=== PATIENT | male | born 1960 | race Caucasian/White ===

== ENCOUNTER → 2022-03-22 08:14 | Outpatient (CLI) | payer OTHER, SELFPAY ==
--- NOTE | ~2022-03-22 | XR_ITS ---
XR pelvis min 3V, XR hip BI wo pelvis 03/22/2022 08:39 Indication: Recent injury. Pelvic pain. Procedure: AP pelvis and 3 views each hip Comparison: No prior studies for comparison. Findings: There is a segmented displaced fracture of the right inferior pubic ramus. Sacral foramen a re symmetric. Mild degenerative changes of the hips. No other fracture identified. No significant sof t tissue abnormality. No foreign bodies. Impression: 1: Segment and displaced fracture right inferior pubic ramus. Reviewed, dictated and finalized at location B. Impression: 1: Segment and displaced fracture right inferior pubic ramus. Impression: 1: Segment and displaced fracture right inferior pubic ramus.
== END ==
PROVIDERS: PCP Internal Medicine; Visit Provider Internal Medicine
DX: S32.591A Other specified fracture of right pubis, initial encounter for closed fracture (principal); Z87.828 Personal history of other (healed) physical injury and trauma
CPT/HCPCS: 72190; 73521

== ENCOUNTER → 2022-08-13 09:17 | Outpatient (CLI) | payer OTHER, SELFPAY ==
--- NOTE | ~2022-08-13 | XR_ITS ---
AP view of the pelvis Clinical history: Pelvic fracture follow-up COMPARISON: 03/22/2022 Findings: There is a healing fracture at the junction of the right inferior pubic ramus and right isc hial tuberosity with fracture lines slightly less well-defined. Additional fracture of the right infe rior pubic or is closely to the symphysis is again present, with large bony gap, and no significant c allus formation or bony bridging. Bilateral hip and SI joint spaces are preserved. Soft tissues are u nremarkable. Impression: Mild interval healing of fracture near the junction of the right inferior pubic ramus and right ischi al tuberosity, as detailed above. Additional fracture of the right inferior pubic ramus closer to the symphysis, with no callus formati on or bony bridging, suggestive of developing nonunion. Reviewed, dictated and finalized at [facility]. DREN'S ZOO CARETAKER Impression: Mild interval healing of fracture near the junction of the right inferior pubic ramus and right ischial tuberosity, as detailed above. Additional fracture of the right inferior pubic ramus closer to the symphysis, with no callus formation or bony bridging, suggestive of developing nonunion.
--- NOTE | ~2022-08-13 | XR_ITS ---
Right Shoulder Technique: AP and axillary views were obtained. Clinical History: Pain Findings: No fracture or dislocation is seen. Osseous alignment is anatomic. The glenohumeral and acr omioclavicular joint spaces are preserved. Soft tissues are unremarkable. Impression: Unremarkable right shoulder radiographs. Reviewed, dictated and finalized at [facility]. SPECIALIST Impression: Unremarkable right shoulder radiographs.
== END ==
PROVIDERS: PCP Internal Medicine; Visit Provider Nurse Practitioner
DX: M25.511 Pain in right shoulder (principal); R10.2 Pelvic and perineal pain; S32.591A Other specified fracture of right pubis, initial encounter for closed fracture
CPT/HCPCS: 72170; 73030

== ENCOUNTER → 2022-08-25 12:38 | Outpatient (CLI) | payer OTHER, SELFPAY ==
--- NOTE | ~2022-08-25 | MR_ITS ---
MRI of the lumbar spine Clinical History: Compression fracture, disc herniation Technique: Axial T2-weighted images, and sagittal T1-weighted, T2-weighted, and T2 fat-sat images wer e acquired. Findings: There is a minimal chronic wedging deformity of L1, with no marrow edema present. No other fracture or subluxation seen. Intraosseous hemangioma noted at the L3 vertebral body. No suspicious b one marrow signal abnormality seen. At L1-L2, L2-L3, L3-L4, there are mild facet joint degenerative changes, but no significant disc bulg e or herniation. No spinal canal stenosis or neural foraminal narrowing at these levels. At L4-L5, there is minimal disc bulge and mild facet arthropathy. No selina spinal canal stenosis. Pos sible minimal left neural foraminal narrowing. Right neural foramen preserved. At L5-S1, there is no significant disc bulge or herniation. There is mild facet arthropathy. No spina l canal stenosis or neural foraminal narrowing. Paravertebral soft tissues are unremarkable. Impression: Mild chronic compression deformity of L1, as detailed above. Minimal degenerative spondylitic changes. Possible minimal left neural foraminal narrowing at L4-L5. Reviewed, dictated and finalized at [facility]. ECTOR TUBES Impression: Mild chronic compression deformity of L1, as detailed above. Minimal degenerative spondylitic changes. Possible minimal left neural foramina l narrowing at L4-L5.
--- NOTE | ~2022-08-25 | MR_ITS ---
EXAMINATION: MR shoulder RT wo con DATE: 08/25/2022 14:07 INDICATION: Right shoulder pain TECHNIQUE: Magnetic resonance imaging (MRI) of the right shoulder was performed without intravenous c ontrast. Sequences included axial PD-weighted FS FSE, coronal oblique PD-weighted FS FSE, coronal obl ique T2-weighted FS FSE, sagittal PD-weighted FS FSE, and sagittal T1-weighted SE. COMPARISON: Right shoulder radiographs dated 08/13/2022 and MRI dated 10/01/2009 FINDINGS: Coracoacromial arch: The acromion undersurface is flat in morphology (type I). The coracoacromial ligament is normal. Mild acromioclavicular osteoarthritis with small inferiorly directed osteophyte at the lateral head of th e clavicle which remains separate from the underlying supraspinatus by thin intervening fat plane. Rotator cuff: Mild infraspinatus and minimal supraspinatus tendinopathy without tear. The teres minor and subscapul eliseo tendons are normal. Normal rotator cuff muscle bulk and signal. Biceps tendon, glenoid labrum and glenohumeral cartilage: Long head of the biceps tendon is normal. There is labral tear which appears to begin at the 12:30 po sition and extending posteriorly and inferiorly to at least the 6:00 position. There is a tiny para l abral cyst measuring 3 x 4 x 4 mm arising from the tear at the periphery of the 9:00 position. Mild g lenohumeral osteoarthritis with partial thickness cartilage loss with smooth chondral surface and wit hout degenerative subchondral changes along the inferomedial aspect of the humeral head and at the ce ntral to cephalad aspect of the glenoid. Tiny marginal osteophytes along the inferior glenoid. Fluid: Physiologic amount of fluid in the glenohumeral joint and biceps tendon sheath. No loose osteochondr al bodies. Minimal increased fluid in the subacromial/subdeltoid bursa consistent with mild bursitis. Bones: Bone alignment is normal. No fracture or pathologic marrow replacing process. There are couple bone i slands at the glenoid. IMPRESSION: 1. Tear involving the posterior half of the glenoid labrum with tiny para labral cyst at the 9:00 pos ition. 2. Mild infraspinatus and minimal supraspinatus tendinopathy without tear. 3. Mild glenohumeral and acromioclavicular osteoarthritis. 4. Mild subacromial/subdeltoid bursitis. Reviewed, dictated and finalized at location A. WARE TRAINER IMPRESSION: 1. Tear involving the posterior half of the glenoid labrum with tiny para judy l cyst at the 9:00 position. 2. Mild infraspinatus and minimal supraspinatus tendinopathy without tear. 3. Mild glenohumeral and acromioclavicular osteoarthritis. 4. Mild subacromial/subdeltoid bursitis.
== END ==
PROVIDERS: PCP Internal Medicine; Visit Provider Nurse Practitioner
DX: S32.010A Wedge compression fracture of first lumbar vertebra, initial encounter for closed fracture (principal); M25.511 Pain in right shoulder; S43.431A Superior glenoid labrum lesion of right shoulder, initial encounter; M75.81 Other shoulder lesions, right shoulder; M19.011 Primary osteoarthritis, right shoulder; M75.51 Bursitis of right shoulder
CPT/HCPCS: 72148; 73221

== ENCOUNTER → 2023-01-27 08:27 | Outpatient (CLI) | payer OTHER, SELFPAY ==
--- NOTE | ~2023-01-27 | XR_ITS ---
Left wrist Technique: PA, oblique, lateral, and ulnar deviation views were obtained. Clinical History: Pain Findings: No acute fracture or dislocation is seen. Osseous alignment is anatomic. There is mild dege nerative change of the first metacarpophalangeal joint. Soft tissues are unremarkable. Impression: No fracture or dislocation. Mild degenerative change of the first metacarpophalangeal joint. Reviewed, dictated and finalized at location . Impression: No fracture or dislocation. Mild degenerative change of the first metacarpophalangeal joint.
== END ==
PROVIDERS: PCP Internal Medicine; Visit Provider Internal Medicine
DX: S69.92XA Unspecified injury of left wrist, hand and finger(s), initial encounter (principal)
CPT/HCPCS: 73110

== ENCOUNTER 2023-12-12 15:42 | Outpatient (CLI) | payer OTHER, SELFPAY ==
--- NOTE | ~2023-12-12 | XR_ITS ---
EXAMINATION: XR thoracic spine 3V DATE: 12/12/2023 15:59 INDICATION: Thoracic spine pain. TECHNIQUE: 3 views of thoracic spine were obtained. COMPARISON: Lumbar spine MRI 08/25/2022 FINDINGS: Bone alignment is normal. There is mild chronic anterior wedging of T12 and L1 vertebral jayla dies. Intervertebral disc heights are normal. There are bridging endplate osteophytes at multiple lev els in the spine, consistent with diffuse idiopathic skeletal hyperostosis (DISH). There is plate and screw fixation of left clavicle. IMPRESSION: 1. DISH. Reviewed, dictated and finalized at location A. IMPRESSION: 1. DISH.
== END 2023-12-12 15:43 ==
LOC: GOSHIMG 15:42
PROVIDERS: PCP Internal Medicine; Visit Provider Internal Medicine
DX: M48.14 Ankylosing hyperostosis [Forestier], thoracic region (principal)
CPT/HCPCS: 72072

== ENCOUNTER 2025-01-15 07:14 | Outpatient (CLI) | payer OTHER, SELFPAY ==
--- NOTE | ~2025-01-15 | CT_ITS ---
Clinical Indication: Solitary pulmonary nodule CT Scan of the Chest with Contrast: Technique: Contiguous sections were acquired throughout the chest after intravenous administration of 75 cc of Omnipaque 350. Dose reduction technique was used on this scan by utilizing automated exposu re control and iterative reconstruction technique. The dose-length product (DLP) was 285.19 mGy-cm. Findings: There is no evidence of any significant mediastinal, hilar or axillary lymphadenopathy. There is no f illing defect in the pulmonary arterial tree to suggest pulmonary embolus. There is no evidence of ao rtic dissection or aneurysm. There is no evidence of pleural or pericardial effusion. 4 mm right upper lobe nodule present (axial image 57). 11 mm right lower lobe nodule present centrall y (axial image 77). Images through the upper abdomen reveal no abnormalities. Impression: 11 mm right lower lobe pulmonary nodule, indeterminate. Consider short-term follow-up CT in [address] or even attempted tissue sampling. Comparison with any prior exams would be useful to a ssess for chronicity of this nodule. Additional 4 mm right upper lobe pulmonary nodule, indeterminate, though likely benign. Reviewed, dictated and finalized at [facility]. Impression: 11 mm right lower lobe pulmonary nodule, indeterminate. Consider short-term fol low-up CT in [address] or even attempted tissue sampling. Comparis on with any prior exams would be useful to assess for chronicity of this nodule . Additional 4 mm right upper lobe pulmonary nodule, indeterminate, though likely benign.
--- OUTSIDE RECORDS SUMMARY | 2025-01-15 07:20 | XMS_ITS | Continuity of Care Document ---
Author Organization [facility] Address [address] [place] [address] Phone Care Team Providers Care Activity Therapist Name Role Phone [facility] Unavailable Unavail able Silvino Zhang Unavailable Unavailable Procedures Procedure Date Vision [employer] Fr[employer] Purchases [employer] SV Plastic Sphcyl [place] +/-4d, .12-2d De Office/outpatient Visit, [facility] W/ Report Eye Photography [facility] Refraction Office/outpatient Visit, [facility] Refraction [facility] Advance Directives Directive Yes / No Effective Date File Name No Information Encounters Encounter Description Practice Location Reason(s) For Visit Diagnoses Date Provider Providers Copied on Encounter [facility], [address], [place], [place], [id number], [place] tel:[phone] [facility] No Information Optical Shop [facility] . [address], [address], [place], [place], [address], [place]. tel:[phone] Referring Provider: Tony Sweeney OD P, [address] [facility], [place], [address] . tel:[phone] sulting Provider: Silvino gonsalves, [address] [facility], [place], [address]. tel:[phone] [facility], [address], [place], [place], [id number], [place] tel:[phone] [address] [facility] [place] No Information Optical [facility] . [address], [address], [place], [place], [address], [place]. tel:[phone] Referring Provider: Tony Sweeney OD P, [address] [facility], [place], [address] . tel:[phone] [facility] Provider: Silvino gonsalves, [address] [facility], [place], [address]. tel:[phone] Office/outpat ient Visit, [facility], [address] [place] [address] [address], [place], [place], [address], [place] tel:[phone] [facility] [place] No Information Zahra OD Tony. [address] [facility], [place], [place], [id number], [place]. tel:[phone] Referring Provider: Tony Sweeney OD P, [address] [facility], [place], [address] . tel:[phone] Office/outpat ient Visit, [facility], [address] [place] [address] [address], [place], [place], [address], [place] tel:[phone] [address] [place] No Information Ibetheny OD Tony. [address] [facility], [place], [place], [address], [place]. tel:[phone] Referring Provider: Tony Sweeney OD P, [address] [facility], [place], [address] . tel:[phone] Family History Family Member Type Diagnosis Age At Onset No Information Payers Payer name Insurance type Covered constitution party ID Authoriza tion(s) No Information Social History Type Description Quantity Date Captured Comments Sex Male Smoking Status No Information Chief Complaint And Reason For Visit No Information Reason For Referral Reason For Referral No Information History Of Present Illness Encounter Date Complaint History Of Prese nt Illness No Information Functional Status Date Functional Assessmen t No Information Instructions Date Instruction Additional Infor mation No Information Assessments Type Assessment Date No Information Patient Care Teams Name Effective Dates (start - stop) Status Members No Information
--- OUTSIDE RECORDS SUMMARY | 2025-01-15 07:20 | XMS_ITS | Referral Summary ---
Author Organization [facility] Address [address] [place] [address] Care Team Providers Care District Associate Judge Name Role Phone Jeramy Chiang DO Primary Care Provider [phone] Allergies No known active allergies Medications ibuprofen (ADVIL,MOTRIN) 800 mg tablet Take 1 tablet (800 mg total) by mouth every 6 (six) hours as needed for pain Active omega-3 fatty acids/fish oil (FISH OIL OMEGA 3-6-9 ORAL) Take 1,000 mg by mouth Active aspirin 81 mg chewable tablet CHEW AND SWALLOW ONE TABLET BY MOUTH ONCE DAILY 01/01/2023 Active atorvastatin (LIPITOR) 40 mg tablet Take 1 tablet (40 mg total) by mouth daily 03/14/2023 Active testosterone (ANDROGEL) 1 % (25 mg/2.5gram) gel in packet Place 50 mg on the skin daily Active prasterone, dhea, 25 mg capsule Take by mouth 3 (three) times a week Active omeprazole (PriLOSEC) 40 mg capsuleIndicati ons:Treatment of Non-Bleeding Gastric Disorder Take 1 capsule (40 mg total) by mouth 2 (two) times a day 60 capsule 1 05/16/2023 Active Active Problems Problem Noted Date Diagnosed Date Esophagitis 05/25/2023 Colon cancer screening 05/25/2023 Chronic right-sided thoracic back pain 3 Wedge compression fracture o f first lumbar vertebra, initial encounter for closed fracture 03/16/2023 Social History Tobacco Use Types Packs/Day Years Used Date Smoking Tobacco: Never Smokeless Tobacco: Never Tobacco Cessation:Counseling Given: Not Answered AUDIT-C Answer Date Recorded Q1: How often do you have a drink containing alc ohol? Monthly or less 07/19/2023 Q2: How many drinks containi ng alcohol do you have on a typical day when you are drinking? 1 or 2 07/19/2023 Q3: How often do you have si x or more drinks on one occasion? Never 07/19/2023 Hunger Vital Sign Answer Date Recorded Within the past 12 months, y ou worried that your food would run out before you got the money to buy more. Never true 03/16/20 23 Within the past 12 months, t he food you bought just didn't last and you didn't have money to get more. Never true 03/16/2023 Personal Safety Answer Date Recorded Have you ever been in or are you currently in a harmful physical or emotional relationship or is someone making you feel afraid or unsafe? 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 Gender Identity Not on file Sexual Orientation Not on file Last Filed Vital Signs Vital Sign Reading Time Taken Comments Blood Pressure 125/70 07/19/2023 9:05 AM DIVISION LEADER Pulse 57 07/19/2023 9:05 AM DIVISION LEADER Temperature 36.8 C (98.2 F) 07/19/2023 8:35 AM DIVISION LEADER Respiratory Rate 17 07/19/2023 9:05 AM DIVISION LEADER Oxygen Saturation 93% 07/19/2023 9:05 AM DIVISION LEADER Inhaled Oxygen Concentration - - Weight 83.9 kg (185 lb) 07/19/2023 7:27 AM DIVISION LEADER Height 177.8 cm (5' 10) 07/19/2023 7:27 AM DIVISION LEADER Body Mass Index 26.54 07/19/2023 7:27 AM DIVISION LEADER Plan of Treatment Not on file Goals Goal Patient Goal Type Associated Problems Recent Progress Patient-Stated? Author CCM Chronic Pain Care Plan Chronic Care Management Keisha Benjamin, RN Note: Problem: Chronic Pain Goals: 1. Minimize further functional decline 2. Maximize quality of life 3. Control pain Strategies: - Activity/exercise program recommendation - Conservative stepwise pain medicine strategy with multi-disciplinary approach - Recommend healthy lifestyle strategies and compensatory methods as needed Procedures Procedure Name Priority Date/Time Associated Diagnosis Comments COLONOSCOPY 07/19/2023 8:14 AM DIVISION LEADER from Last 3 Months or Most Recently Relevant to Health Maintenance Results * COLONOSCOPY (07/19/2023 8:14 AM DIVISION LEADER) Anatomical Region Laterality Modality Other Narrative Procedure Note Mina Mendez MD - 07/19/2023 8:14 AM [facility] Patient Name: Hitesh Escobedo Procedure Date: 07/19/2023 8:14 AM Date of : 1960 Admit Type: Outpatient Age: 62 Gender: Male Attending MD: Mina Mendez M.D. Room: [facility] 9 Note Status: Finalized Procedure: Colonoscopy Indications: Screening for colorectal malignant neoplasm Referring MD: Jeramy Chiang D.O. Providers: Mina Mendez M.D. Comorbidities See the other procedure note for documentation of comorbidities Medicines: Monitored Anesthesia Care Complications: No immediate complications. Estimated Blood Loss: Estimated blood loss was minimal. Procedure: Pre-Anesthesia Assessment: - Prior to the procedure, a History and Physicalwas performed, and patient medications, allergies and sensitivities were reviewed. The patient'stolerance of previous anesthesia was reviewed. - Immediately prior to administration ofmedications, the patient was re-assessed for adequacy to receive sedatives. - The risks and benefits of the procedure and the sedation options and risks were discussed with the patient. All questions were answered and informed consent was obtained. The benefits, risks and alternatives of theprocedure and sedation were discussed and informed consentwas obtained. All questions were answered. Please referto the signed informed consent document in the medical record. The scope was passed under direct vision.The [id number] endoscope was introduced through the anus and advanced to the terminal ileum. The colonoscopy was performed without difficulty. The patient tolerated the procedure well. The qualityof the bowel preparation was evaluated using the BBPS ([place] Bowel Preparation Scale) with scores of:Right Colon = 2 (minor amount of residual staining, small fragments of stool and/or opaque liquid, but mucosa seen well), Transverse Colon = 3 (entire mucosaseen well with no residual staining, small fragments of stool or opaque liquid) and Left Colon = 2 (minor amount of residual staining, small fragments ofstool and/or opaque liquid, but mucosa seen well). Thetotal BBPS score equals 7. The bowel preparation used was GoLYTELY via split dose instruction. The quality of the bowel preparation was adequate. Findings: The perianal and digital rectal examinations were normal. The terminal ileum appeared normal. A 4 mm polyp was found in the cecum. The polyp was sessile. The polyp was removed with a cold snare. Resection and retrieval werecomplete. A 4 mm polyp was found in the transverse colon. The polyp wassessile. The polyp was removed with a cold snare. Resection and retrieval were complete. A 3 mm polyp was found in the sigmoid colon. The polyp was sessile.The polyp was removed with a cold snare. Resection and retrieval were complete. Non-bleeding hemorrhoids were found during retroflexion. The entire examined colon appeared normal on direct and retroflexion views. Impression: - The examined portion of the ileum was normal. - One 4 mm polyp in the cecum, removed with a cold snare. Resected and retrieved. - One 4 mm polyp in the transverse colon, removedwith a cold snare. Resected and retrieved. - One 3 mm polyp in the sigmoid colon, removed witha cold snare. Resected and retrieved. - Non-bleeding hemorrhoids. - The entire examined colon is normal on direct and retroflexion views. Recommendation: - The patient will be observed post-procedure,until all discharge criteria are met. - Surveillance colonoscopy in 3 years pending pathology. - Resume previous diet. - Continue home medications. - Follow up with referring physician as previously scheduled. Attending Participation: I personally performed the entire procedure. Electronically signed by Mina Mendez MD Mina Mendez M.D. 07/19/2023 8:34:43 AM . Number of Addenda: 0 Note Initiated On: 07/19/2023 8:14 AM Recognized by the [place] [employer] for promoting quality in endoscopy Mina Mendez MD ENDOSCOPY PROCEDURES Final Result from Last 3 Months or Most Recently Relevant to Health Maintenance Insurance [facility] [place] [address] CHOICE PLUS Member Subscriber Plan / Payer (Ef fective 2022-Present) Name:Hitesh Escobedo Relation to Subscriber:Spouse Name:FREDERICK ESCOBEDO Date of :1964 (Home) Address: [address] [place] [address] Payer ID:[id number] (NAIC) Type:[facility] HMO/PPO Address: [place] [phone] Advance Directives For more information, please contact: [phone] * Full Code (Latest Code Status on File) Date Activated Date Inactivated Comments 05/16/2023 9:34 AM 05/16/2023 3:52 PM Care Teams District Associate Judge Relationship Specialty Start Date End Date Jeramy Chiang DO PCP - General 03/10/15
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
--- OUTSIDE RECORDS SUMMARY | 2025-01-15 07:20 | XMS_ITS | Clinical Summary ---
Author Organization [facility] Address [address] [place] [address] Care Team Providers Care Clerk Of Court Name Role Phone Jeramy Chiang DO Primary Care Provider [phone] Source Comments [facility],non-owned Affiliates and Associated Physician Practices is amultiple site organization consisting of ambulatory clinics and hospital sitesin [place], [place], [place] and [place]. This disclosure is being madepursuant to the Care Everywhere program and may not contain all information available regarding this patient. Last updated 18.[facility] Allergies No known active allergies Medications * Be aware that medications may not be up to date on this document. Alwaysverify current medications with the patient. fish oil/omega-3 fatty acids (Promega;Cardi- [place] 3) 1000 MG capsule Take 1 (one) capsule by mouth 3 times daily with meals Active Docosahexaenoic Acid (DHA COMPLETE PO) Active aspirin (Aspirin) 81 MG chew tablet Take 1 (one) tablet by mouth once daily 30 tablet 01/01/2023 Active atorvastatin (Lipitor) 40 MG tablet Take 1 (one) tablet by mouth once daily 90 tablet 3 01/26/2023 Active ondansetron, disintegrating, (Zofran ODT) 4 MG tablet Take 1 (one) tablet by mouth every 6 hours as needed for Nausea/Vomiti ng Allow tablet to dissolve on the tongue 12 tablet 10/08/2024 Active Active Problems Problem Noted Date Diagnosed Date Dizziness 12/30/2022 Family History Medical History Relation Name Comments CVA Father Relation Name Status Comments Father Social History Tobacco Use Types Packs/Day Years Used Date Smoking Tobacco: Never Tobacco Cessation:Counseling Given: Not Answered Alcohol Use Standard Drinks/Week Comments Not Currently 0 (1 standard drink = 0.6 oz pur e alcohol) PHQ-2 Answer Date Recorded PHQ2 TOTAL SCORE 0 12/31/2022 Sex and Gender Information Value Date Recorded Sex Assigned at Not on file Legal Sex Male 7:42 AM CDT Gender Identity Not on file Sexual Orientation Not on file 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 Not on file Not on file Not on mare e Last Filed Vital Signs Vital Sign Reading Time Taken Comments Blood Pressure 136/75 10/08/2024 3:01 AM SHOWCASE TRIMMER Pulse 77 10/07/2024 11:31 PM SHOWCASE TRIMMER Temperature 36.6 C (97.9 F) 10/08/2024 12:04 AM SHOWCASE TRIMMER Respiratory Rate 20 10/07/2024 11:31 PM SHOWCASE TRIMMER Oxygen Saturation 91% 10/08/2024 4:44 AM SHOWCASE TRIMMER Inhaled Oxygen Concentration - - Weight 83 kg (183 lb) 01/26/2023 2:59 PM CDT Height 177.8 cm (5' 10) 01/26/2023 2:59 PM CDT Body Mass Index 26.26 01/26/2023 2:59 PM CDT Plan of Treatment Health Maintenance Due Date Last Done Comments COLOGUARD (AGES 45-75) - COLON CA SCREENING 1960 CT COLONOGRAPHY - COLON CA SCREENING 1961 FIT - COLON CA SCREENING 1961 FLEX SIG - COLON CA SCREENING 1961 HIV SCREENING 1976 HEPATITIS C SCREENING 12/20/1979 DTAP/TDAP/TD VACCINES (1 - Tdap) 1980 PNEUMOCOCCAL VACCINE 50+ (1 of 1 - PCV) 12/25/2011 ZOSTER VACCINE (1 of 2) 12/25/2011 COVID-19 VACCINE (3 - season) 2024 11/24/2020, 11/03/2020 DEPRESSION SCREENING 08/08/2024 12/30/2022 INFLUENZA VACCINE (Season Ended) 2025 06/29/2019, 05/26/2018, 05/19/2017, Additional history exists SCREENING FOR DIABETES 10/08/2027 , 12/31/2022, 12/31/2022, Additional history exists COLON MONITORING 07/19/2033 07/19/2023 COLONOSCOPY - COLON CA SCREENING 07/19/2033 07/19/2023 Colorectal Cancer Screening 07/19/2033 Respiratory Syncytial Virus (RSV) Vaccine Pt: or over 60 yrs (1 - 1-dose 75+ series) 2036 HEPATITIS B VACCINE Aged Out No longe r eligible based on patient's age to complete this topic HIB VACCINE Aged Out No longer eligi ble based on patient's age to complete this topic HPV VACCINE Aged Out No longer eligi ble based on patient's age to complete this topic MENINGOCOCCAL (Group B) VACCINE SHARED DECISION-MAKING Aged Out No longer eligible based on patient's age to complete this topic MENINGOCOCCAL GROUPS A/C/Y/W VACCINE Aged Out No longer eligible based on patient's age to complete this topic Procedures Procedure Name Priority Date/Time Associated Diagnosis Comments COMPREHENSIVE METABOLIC PANEL STAT 10/07/2024 11:53 PM SHOWCASE TRIMMER from Last 3 Months or Most Recently Relevant to Health Maintenance Results * (ABNORMAL) COMPREHENSIVE METABOLIC PANEL (10/07/2024 11:53 PM SHOWCASE TRIMMER) Glucose 184(H) 70 - 99 mg/dL 10/08/2024 12:17 AM SHOWCASE TRIMMER [facility] Sodium 137 136 - 145 mmol/L 10/08/2024 12:17 AM [facility] Potassium 4.7 3.5 - 5.1 mmol/L 10/08/2024 12:17 AM [facility] Chloride 103 98 - 107 mmol/L 10/08/2024 12:17 AM [facility] CO2 21(L) 22 - 29 mmol/L 10/08/2024 12:17 AM SHOWCASE TRIMMER [facility] Calcium 9.5 8.4 - 10.4 mg/dL 10/08/2024 12:17 AM [facility] Anion Gap 13 6 - 16 mmol/L 10/08/2024 12:17 AM [facility] BUN 26 7 - 26 mg/dL 10/08/2024 12:17 AM [facility] Creatinine 1.80(H) 0.72 - 1.25 mg/dL 10/08/2024 12:17 AM [facility] Alkaline Phosphatase 90 40 - 150 U/L 10/08/2024 12:17 AM SHOWCASE TRIMMER [facility] ALT 54 0 - 55 U/L 10/08/2024 12:17 AM SHOWCASE TRIMMER [facility] AST 25 5 - 34 U/L 10/08/2024 12:17 AM SHOWCASE TRIMMER [facility] Protein Total 8.0 6.4 - 8.3 gm/dL 10/08/2024 12:17 AM SHOWCASE TRIMMER [facility] Albumin 4.4 3.4 - 5.0 gm/dL 10/08/2024 12:17 AM SHOWCASE TRIMMER [facility] Bilirubin Total 1.4(H) 0.2 - 1.2 mg/dL 10/08/2024 12:17 AM SHOWCASE TRIMMER [facility] eGFR by CKD-EPI 42(L) >=90 mL/min/1.7 3 m2 10/08/2024 12:17 AM SHOWCASE TRIMMER [facility] Blood BLOOD SPECIMEN / Unknown Venipuncture / Unknown 10/07/2024 11:53 PM SHOWCASE TRIMMER 10/08/2024 12:00 AM SHOWCASE TRIMMER us Rita Kruse DO LAB - CHEMISTRY ORDERABLES Aisha goss Result [facility] [address] [place] [address] from Last 3 Months or Most Recently Relevant to Health Maintenance Insurance [facility] Advance Directives * Full Code (Latest Code Status on File) Date Activated Date Inactivated Comments 12/30/2022 2:39 PM 12/31/2022 4:45 PM Care Teams Clerk Of Court Relationship Specialty Start Date End Date Jeramy Chiang DO PCP - General Internal Medicine 12/31/22
[2025-01-15 07:38] LABS: Estimated Glomerular Filt Rate 56
== END 2025-01-15 07:15 | disposition home or self-care (01) ==
PROVIDERS: PCP Internal Medicine; Visit Provider Internal Medicine
DX: R91.1 Solitary pulmonary nodule (principal)
CPT/HCPCS: 71260; Q9967

== ENCOUNTER 2025-01-31 08:51 | Outpatient (CLI) | payer OTHER, SELFPAY ==
--- NOTE | ~2025-01-31 | PE_ITS ---
EXAMINATION: PET skull to mid thigh DATE: 01/31/2025 12:40 INDICATION: Solitary pulmonary nodule TECHNIQUE: Blood glucose level was not recorded. 10.931 mCi of 18-fluorodeoxyglucose (18-FDG) was adm inistered i.v. Low dose computed tomography (CT) images were acquired from the base of the brain to t he proximal thighs for attenuation correction and anatomic localization. Positron emission tomography (PET) images were acquired in the same distribution beginning 55 minutes after injection. Images inc luding fused PET/CT images were reconstructed in axial, coronal, and sagittal planes. Automated expos ure control technique was employed. The dose-length product was 0924.00mGy-cm. COMPARISON: Chest CT dated 01/15/2025 FINDINGS: Head/neck: There is symmetric increased activity in the nares, oral cavity, palatine tonsils, laryngeal muscles and ocular muscles without CT correlate, likely physiologic. No pathologically enlarged cervical lymp hadenopathy or suspicious foci of increased FDG uptake in the visualized head or neck. Chest: Mild dependent atelectasis in the bilateral lower lobes. No evident FDG uptake associated with a 11 x 9 mm right lower lobe nodule which demonstrates macroscopic fat attenuation on prior CT consistent w ith pulmonary hamartoma. No other suspicious pulmonary nodules, pneumonia, pulmonary edema or pleural effusion. Heart size is normal. Small amount of atherosclerotic coronary artery calcific location. N o pericardial effusion. Thoracic aorta is normal in caliber. No pathologically enlarged or FDG avid t horacic lymphadenopathy. Abdomen/pelvis/proximal thighs: Physiologic renal accumulation and excretion of FDG activity in the kidneys, bladder and along portio ns of ureters. Normal degree and heterogenous pattern of increased uptake throughout the liver withou t radiologic correlate or dominant FDG avid lesion. The gallbladder, pancreas, spleen and bilateral a drenal glands are normal. Mild uptake scattered throughout the bowels without radiologic correlate, a lso likely physiologic. Normal appendix. No other abnormal foci of increased FDG uptake or pathologic ally enlarged lymphadenopathy in the abdomen, pelvis or proximal thighs. Musculoskeletal: Plain screw fixation along the left clavicle likely for old healed fracture. Small chronic sclerotic bone island seen on MRI dated 10/01/2009 with no abnormal FDG uptake. No suspicious lytic, blastic or abnormally FDG avid bone lesions. IMPRESSION: 1. No FDG uptake associated with 11 mm macroscopic fat-containing right lower lobe nodule consistent with a benign pulmonary hamartoma. No FDG avid lesions suspicious for primary malignancy or metastati c disease. Reviewed, dictated and finalized at location [facility]. IMPRESSION: 1. No FDG uptake associated with 11 mm macroscopic fat-containing right lower l obe nodule consistent with a benign pulmonary hamartoma. No FDG avid lesions barbosa spicious for primary malignancy or metastatic disease.
[2025-01-31 09:25] LABS: Glucose Point of Care 92 mg/dl (65-105)
== END 2025-01-31 08:52 | disposition home or self-care (01) ==
PROVIDERS: PCP Internal Medicine; Visit Provider Internal Medicine
DX: R91.1 Solitary pulmonary nodule (principal)
CPT/HCPCS: 78815; A9552